=== PATIENT | female | born 1965 | race Hispanic/Latino ===

== ENCOUNTER → 2017-09-25 | Outpatient (CLI) | payer OTHER ==
--- NOTE | 2017-09-25 15:26 | Diagnostic Imaging Report ---
EXAM: DXA BONE DENSITY INDICATIONS: POST MENOPAUSAL COMPARISON: None. FINDINGS: Proximal left femur total bone mineral density (BMD) (g/cm2):0.893 Femur T-score (standard deviation relative to young adult mean BMD): -0.5 Femur Z-score (standard deviation relative to age-matched control group):-0.1 Proximal left femur neck bone mineral density (BMD) (g/cm2):0.786 Femur T-score (standard deviation relative to young adult mean BMD): -0.7 Femur Z-score (standard deviation relative to age-matched control group):-0.1 Lumbar bone mineral density (BMD) (g/cm2):0.982 Lumbar T-score (standard deviation relative to young adult mean BMD): -0.6 Lumbar Z-score (standard deviation relative to age-matched control group):0.2 Change since prior exam (%): Femur:Not applicable. Spine:Not applicable. Change since oldest prior exam (%): Femur:Not applicable. Spine:Not applicable. CONCLUSION: 1. Bone mineral density in the left femur is classified as normal. Fracture risk is not increased. 2. Bone mineral density in the spine is classified as normal. Fracture risk is not increased. World Health Organization Classification: *The Z-score is provided for informational purposes. The T-score is preferable for clinical decisions. When comparing exams, a change of >4% is considered statistically significant. SUGGESTED RECOMMENDATIONS: Normal \T\ Osteopenia:Consideration should be given to use of calcium supplementation, daily multiple vitamins and adequate exercise, as preventive measures against osteoporosis, if clinically indicated. Osteoporosis \T\ Severe Osteoporosis:In addition to the above, consideration should be given to medical therapy against osteoporosis, if clinically indicated. Tenzin Montoya M.D. Dictated by: Tenzin Montoya M.D. on 09/25/2017 at 15:28 Electronically approved by: Tenzin Montoya M.D. on 09/25/2017 at 15:28
--- NOTE | 2017-09-26 08:36 | Diagnostic Imaging Report ---
#[id number] - MGSCRBIL #BILATERAL DIGITAL SCREENING MAMMOGRAM WITH CAD: 09/25/2017 CLINICAL: Routine screening. Comparison is made to exams dated: 08/11/2007 mammogram - [facility] [place] and 02/17/2015 mammogram - [facility]. Current study contains 8 films. The tissue of both breasts is heterogeneously dense. This may lower the sensitivity of mammography. Current study was also evaluated with a Computer Aided Detection (CAD) system. There is a benign intramammary node in the right breast that appears stable. Bilateral breast implants are intact. No significant masses, calcifications, or other findings are seen in either breast. There has been no significant interval change. IMPRESSION: BENIGN There is no mammographic evidence of malignancy. A 1 year screening mammogram is recommended. The patient will be notified by letter of the results. Paul Colin Jr., D.O. cw/:09/25/2017 13:46:24 Molding Process Technician: MIKE HE [facility] letter sent: Compared to Prior B9 Mammogram BI-RADS: 2 Benign
== END ==
LOC: MAMMO 12:18
PROVIDERS: ATTEND Obstetrics & Gynecology
CPT/HCPCS: 77067; 77080

== ENCOUNTER → 2017-12-01 | Outpatient (CLI) | payer OTHER ==
[~2017-12-01] MED LIST: GADOBENATE DIMEGLUMINE 1 ML IV ONE
--- NOTE | 2017-12-02 11:43 | Diagnostic Imaging Report ---
TECHNIQUE: Magnetic resonance imaging of the PELVIS was performed without and with injected contrast using standard departmental protocols. 15 mL of MultiHance HISTORY: Pain COMPARISON: None. FINDINGS: Bone and bone marrow: No focal or infiltrative bone marrow replacing abnormality. No fracture or osteonecrosis. Articular cartilage: Mild degenerative arthrosis of the hips Soft tissues: No concerning soft tissue mass. No hernia. Benign appearing lymph nodes in the inguinal region, largest on the left measuring long access I.8 cm. IMPRESSION: Mild degenerative arthrosis of the hips. No concerning soft tissue mass or hernia. Benign lymph nodes in the inguinal region. Signed by: Dr. Krishan Gutierrez M.D. on 12/02/2017 11:40 AM
== END ==
LOC: MRI 16:37
PROVIDERS: ATTEND Internal Medicine Gastroenterology
DX: R19.09 Other intra-abdominal and pelvic swelling, mass and lump (principal)
CPT/HCPCS: 72197

== ENCOUNTER → 2019-03-12 | Outpatient (CLI) | payer OTHER | LOC: MAMMO 09:46 | PROVIDERS: ATTEND Obstetrics & Gynecology | DX: Z12.31 Encounter for screening mammogram for malignant neoplasm of breast (principal) | CPT/HCPCS: 77067 ==

== ENCOUNTER 2019-11-29 20:18 | Emergency (ER) | payer OTHER ==
[~2019-11-29] VITALS: Ht 167.6 cm; Wt 79.8 kg
[2019-11-29 21:29] LABS: BILIRUBIN,URINE NEGATIVE (NEGATIVE); CLARITY,URINE SL CLOUDY (CLEAR); COLOR,URINE YELLOW (YELLOW); KETONES,URINE TRACE (NEGATIVE); LEUKOCYTE ESTERASE ,URINE NEGATIVE (NEGATIVE); NITRITE,URINE NEGATIVE (NEGATIVE); PROTEIN,URINE DIPSTICK TRACE (NEGATIVE); URINE UROBILINOGEN 1 mg/dL (0.2 - 1)
[2019-11-29 21:40] LABS: BACTERIA,URINE MANY /HPF; EPITHELIAL CELLS,URINE MANY /LPF; TRANSITIONAL EPI CELLS,URINE MODERATE
--- NOTE | 2019-11-29 21:43 | Emergency Department Note ---
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; ALSO REPORTS URINARY FREQUENCY Historian: Patient Arrival Mode: Car Onset (how long ago): day(s) (7) Location: ALL OVER Quality: FEVER, CHILLS, COUGH, SOB, BODY ACHES, URINARY FREQUENCY Radiation: Reports non-radiation Severity: mild Onset quality: gradual Duration (how long): day(s) (7) Timing of current episode: constant Progression: worsening Context: Reports recent illness ( ABOVE) Relieving factors: none Exacerbating factors: none Associated symptoms: Reports cough, Reports fever/chills, Reports nausea/vomiting, Reports shortness of breath, Reports other (URINARY FREQUENCY) Past Medical/Family History Physician Review I have reviewed the patient's past medical and family history. Any updates have been documented here. Past Medical History Recent Fever: Yes Clinical Suspicion of Infectio: Yes New/Unexplained Change in Ment: No Past Medical History: None Other Surgery: BREAST AUGMENTATION GASTRIC BYPASS Social History Physically hurt or threatened: No Family History Family history of heart diseas: No Other family history HTN Review of Systems Review of Systems Constitutional: Reports as per HPI EENTM: Reports no symptoms Cardiovascular: Reports no symptoms Respiratory: Reports as per HPI Gastrointestinal: Reports no symptoms Genitourinary: Reports no symptoms, Reports as per HPI Musculoskeletal: Reports no symptoms Integumentary: Reports no symptoms Neurological: Reports no symptoms Psychological: Reports no symptoms Endocrine: Reports no symptoms Hematological/Lymphatic: Reports no symptoms Physical Exam Related Data Allergies: Coded Allergies: No Known Allergies (Unverified , 11/29/19) Triage Vital Signs Vital Signs Date Time Temp Pulse Resp B/P (MAP) Pulse Ox O2 Delivery O2 Flow Rate FiO2 11/29/19 20:35 100.0 86 20 135/72 100 Room Air Vital signs reviewed: Yes Physical Exam CONSTITUTIONAL Constitutional: Present well-developed, Present well-nourished HENT HENT: Present normocephalic, Present atraumatic, Present oropharynx clear/moist, Present nose normal HENT L/R: Present left ext ear normal, Present right ext ear normal EYES Eyes: Reports PERRL, Reports conjunctivae normal NECK Neck: Present ROM normal PULMONARY Pulmonary: Present effort normal, Present breath sounds normal CARDIOVASCULAR Cardiovascular: Present regular rhythm, Present heart sounds normal, Present capillary refill normal, Present normal rate GASTROINTESTINAL Abdominal: Present soft, Present nontender, Present bowel sounds normal GENITOURINARY Genitourinary: Present exam deferred SKIN Skin: Present warm, Present dry MUSCULOSKELETAL Musculoskeletal: Present ROM normal NEUROLOGICAL Neurological: Present alert, Present oriented x 3, Present no gross motor or sensory deficits PSYCHOLOGICAL Psychological: Present mood/affect normal, Present judgement normal Results Laboratory Laboratory Laboratory Tests Test 11/29/19 20:57 Urine Color Yellow (YELLOW) Urine Clarity Sl cloudy (CLEAR) Urine pH 7 (5 - 7) Urine Specific [place] 1.020 (1.010-1.025) Urine Protein Trace (NEGATIVE) Urine Glucose (UA) Negative (NEGATIVE) Urine Ketones Trace (NEGATIVE) Urine Blood Negative (NEGATIVE) Urine Nitrite Negative (NEGATIVE) Urine Bilirubin Negative (NEGATIVE) Urine Urobilinogen 1 mg/dL (0.2 - 1) Urine Leukocyte Esterase Negative (NEGATIVE) Lab results reviewed: Yes Imaging Imaging results reviewed: Yes Impressions Procedure: [id number] DX/CHEST SINGLE (PORTABLE) Exam Date: 11/29/19 Exam Time: 2129 REPORT STATUS: Signed EXAMINATION: CHEST SINGLE (PORTABLE) INDICATION: FEVER, COUGH COMPARISON: None FINDINGS: TUBES and LINES: None. LUNGS: Normal lung volumes. Lungs are clear. No consolidations. PLEURA: No pleural effusion or pneumothorax. HEART AND MEDIASTINUM: The cardiomediastinal silhouette is unremarkable. BONES AND SOFT TISSUES: No acute osseous lesion. Soft tissues are unremarkable. UPPER ABDOMEN: No free air under the diaphragm. IMPRESSION: No acute thoracic radiographic abnormality. Signed by: Sophy Lee MD on 11/29/2019 10:15 PM Dictated By: SOPHY LEE MD 14 Transcribed By: BESS on 11/29/192214 COPY TO: GERRY SIEGEL MD~ Assessment & Plan Medical Decision Making MDM PT WITH COVID 19 SYMPTOMS AND URINARY FREQUENCY CXR, UA ORDERED TO EVAL FOR VIRAL PNEUMONIA, UTI pt discharged home, instructed to self quarantine for next 14 days as i suspect she has covid 19 viral infection pt discharged with a zpak, take as directed. Assessment & Plan Final Impression: (1) Viral syndrome (2) Suspected COVID-19 virus infection Depart Disposition: HOME, SELF-CARE Last Vital Signs Date Time Temp Pulse Resp B/P (MAP) Pulse Ox O2 Delivery O2 Flow Rate FiO2 11/29/19 20:35 100.0 86 20 135/72 100 Room Air GERRY SIEGEL MD Nov 29, 2019 21:43
--- NOTE | 2019-11-29 22:19 | Diagnostic Imaging Report ---
EXAMINATION: CHEST SINGLE (PORTABLE) INDICATION: FEVER, COUGH COMPARISON: None FINDINGS: TUBES and LINES: None. LUNGS: Normal lung volumes. Lungs are clear. No consolidations. PLEURA: No pleural effusion or pneumothorax. HEART AND MEDIASTINUM: The cardiomediastinal silhouette is unremarkable. BONES AND SOFT TISSUES: No acute osseous lesion. Soft tissues are unremarkable. UPPER ABDOMEN: No free air under the diaphragm. IMPRESSION: No acute thoracic radiographic abnormality. Signed by: Reji Arias MD on 11/29/2019 10:15 PM
--- NOTE | 2019-12-01 16:20 | NUR ---
PT NOTIFIED OF NEGATIVE RESULTS AND INSTRUCTED TO COME TO ED IF ANY SOB OR DIFFICUTLY BREATHING. ALL QUESTIONS ANSWERED AND PT VERBALIZES UNDERSTANDING.
== END 2019-11-29 22:55 | disposition home or self-care (01) ==
LOC: ER 20:45
DX: B34.9 Viral infection, unspecified (principal); R05 Cough; R50.9 Fever, unspecified; R11.2 Nausea with vomiting, unspecified; Z98.84 Bariatric surgery status
CPT/HCPCS: 71045; 81001; 99283; U0002

== ENCOUNTER → 2020-05-08 | Outpatient (CLI) | payer OTHER ==
[~2020-05-08] MED LIST changes: +COVID-19 VACC, MRNA(MODERNA)/PF 100 MCG/0.5 ML VIAL IM ONE; -GADOBENATE DIMEGLUMINE 1 ML IV ONE
== END ==
LOC: VACCPMC 18:00
DX: Z23 Encounter for immunization (principal); Z20.822 Contact with and (suspected) exposure to COVID-19

== ENCOUNTER → 2020-06-07 | Outpatient (CLI) | payer OTHER | END | DRG 951 | LOC: VACCPMC 09:33 | DX: Z23 Encounter for immunization (principal); Z20.822 Contact with and (suspected) exposure to COVID-19 | CPT/HCPCS: 0012A; 91301 ==

== ENCOUNTER → 2020-08-23 | Outpatient (CLI) | payer OTHER | LOC: MAMMO 11:33 | PROVIDERS: ATTEND Obstetrics & Gynecology | DX: Z12.31 Encounter for screening mammogram for malignant neoplasm of breast (principal) | CPT/HCPCS: 77067 ==

== ENCOUNTER → 2021-06-18 | Outpatient (CLI) | payer OTHER | LOC: RAD 14:40 | PROVIDERS: ATTEND Internal Medicine Gastroenterology | DX: R07.9 Chest pain, unspecified (principal) | CPT/HCPCS: 93005 ==

== ENCOUNTER → 2021-09-04 | Outpatient (CLI) | payer OTHER | LOC: MAMMO 13:44 | PROVIDERS: ATTEND Obstetrics & Gynecology | DX: Z12.31 Encounter for screening mammogram for malignant neoplasm of breast (principal) | CPT/HCPCS: 77067 ==

== ENCOUNTER → 2022-09-03 | Outpatient (CLI) | payer OTHER | LOC: MAMMO 14:27 | PROVIDERS: ATTEND Obstetrics & Gynecology | DX: Z12.31 Encounter for screening mammogram for malignant neoplasm of breast (principal) | CPT/HCPCS: 77067 ==

== ENCOUNTER → 2024-03-19 | Outpatient (REF) | payer OTHER | LOC: MAMMO 13:40 | PROVIDERS: ATTEND Obstetrics & Gynecology | DX: Z12.31 Encounter for screening mammogram for malignant neoplasm of breast (principal) | CPT/HCPCS: 77067 ==

== ENCOUNTER → 2024-03-25 | Day surgery (SDC) | payer OTHER ==
[~2024-03-25] MED LIST changes: -COVID-19 VACC, MRNA(MODERNA)/PF 100 MCG/0.5 ML VIAL IM ONE; +METOCLOPRAMIDE HCL 10 MG/2ML VIAL ONE; +MULTI-VITAMIN1 EACH PO; +PROPOFOL IV EMULSION 10 MG/ML 20 ML VIAL ONE
[2024-03-25] MEDS: LACTATED RINGER'S 1,000 ML ONE (06:20)
[2024-03-25 08:07] VITALS: TEMP 97.4
[2024-03-25 08:40] VITALS: BP 120/82; PULSE 81; RESP 16; O2SAT 100
== END | disposition home or self-care (01) ==
LOC: OR 05:26
PROVIDERS: ATTEND Internal Medicine Gastroenterology
DX: K22.10 Ulcer of esophagus without bleeding (principal); Z98.84 Bariatric surgery status; K31.89 Other diseases of stomach and duodenum; K63.89 Other specified diseases of intestine; K64.8 Other hemorrhoids; D64.9 Anemia, unspecified; E78.5 Hyperlipidemia, unspecified; Z68.28 Body mass index [BMI] 28.0-28.9, adult
CPT/HCPCS: 43239; 43270; 43450; 45380; J2470; J2704; J2765; J7121; 45378